=== PATIENT | female | born 1950 | race African-American/Black ===

== ENCOUNTER 2016-09-25 07:34 | Emergency (ER) | payer MEDICARE, MEDICAID ==
[~2016-09-25] VITALS: Ht 165.1 cm; Wt 82.0 kg
[~2016-09-25 07:34] MED LIST: ALPHAGAN P0.1 % OP; AMLODIPINE5 MG PO; ARICEPT PO; ASPIRIN325 MG PO; BRIMONIDINE TAR0.2 % OU; CALCIUM + D600 MG PO; CETIRIZINE HCL5 MG PO; CHILD ASA81 MG OR; CIPROFLOXACN500 MG PO; EQ ASPIRIN81 MG PO; FLEXERIL PO; FLEXERIL10 MG PO; FLONASE NASAL50 MCG; FLUOXETINE10 M2 PO; GLIPIZIDE5 MG PO; HYDRALAZINE25 MG PO; LIPITOR40 MG PO; LISINOPRIL5 MG PO; LOPRESSOR50 MG PO; LORTAB 5/3255 MG PO; LORTAB 7.5 PO; METFORMIN500 MG PO; METOPROLOL TART50 MG PO; MULTI VIT PO; NAMENDA1 TAB PO; NAMENDA10 MG PO; NAPROSYN375 MG PO; NAPROSYN500 MG PO; NIFEDICAL XL30 MG PO; NIFEDIPINE30 MG PO; OXYBUTYNIN5 M1 PO; TRAVATAN Z0.004 % OU; TRAVATAN0.004 % OP; WOMENS 50+ PO; ZPAK PO; ZYRTEC10 MG PO; [UNRECOGNIZED DRUG - CODE] PO
[2016-09-25] MEDS ORDERED: METFORMIN500 MG PO (07:57)
[2016-09-25] MEDS ORDERED: GLIPIZIDE5 MG PO (07:57)
[2016-09-25] MEDS ORDERED: NAPROSYN500 MG PO (09:20)
[2016-09-25 09:28] VITALS: BP 186/96
== END 2016-09-25 09:28 | disposition home or self-care (01) ==
LOC: ED 07:34
DX: S20.219A Contusion of unspecified front wall of thorax, initial encounter (principal); W01.198A Fall on same level from slipping, tripping and stumbling with subsequent striking against other object, initial encounter; Y93.01 Activity, walking, marching and hiking; Y92.009 Unspecified place in unspecified non-institutional (private) residence as the place of occurrence of the external cause; R07.9 Chest pain, unspecified; Z86.73 Personal history of transient ischemic attack (TIA), and cerebral infarction without residual deficits

== ENCOUNTER 2017-02-03 09:46 | Emergency (ER) | payer MEDICARE, MEDICAID ==
[~2017-02-03] VITALS: Ht 165.1 cm; Wt 80.0 kg
[2017-02-03 11:26] LABS: HEMATOCRIT 42.6 % (37.0-47.0); HEMOGLOBIN 13.9 g/dl (12.0-16.0); IMMATURE GRANULOCYTES 0.3 % (0.0-1.0); MEAN CELL VOLUME 82.4 fL CALC (80.0-100.0); MEAN CORPUSCULAR HGB 26.9 pG CALC (26.0-32.0); MEAN CORPUSCULAR HGB CONC 32.6 g/L CALC (32.0-36.0); NEUT# 3.68 thou/uL (2.00-7.15); RED BLOOD COUNT 5.17 mill/uL (4.20-5.60); RED CELL DISTRI WIDTH 13.8 % (11.5-15.5)
[2017-02-03 11:28] LABS: ALBUMIN 4.4 g/dL (3.2-5.0); ALKALINE PHOSPHATASE 70 u/l (38-126); ANION GAP 19 (6-22 (CALC)); BUN 29 mg/dL (8-23); BUN/CREATININE RATIO 30 (12-20 (CALC)); CALCIUM 9.6 mg/dL (8.4-10.2); CARBON DIOXIDE 25 mmol/l (22-30); CHLORIDE 100 mmol/l (95-108); GFR 55 ML/MIN (>=60 (CALC)); GFR FOR AFR.AMER. > 60 ML/MIN (>=60 (CALC)); GLUCOSE 136 mg/dL (82-115); POTASSIUM 3.9 mmol/l (3.5-5.1); SGOT/AST 56 u/l (9-36); SGPT/ALT 56 u/l (11-66); SODIUM 140 mmol/l (137-146); TOTAL PROTEIN 8.3 g/dL (6.3-8.2)
[2017-02-03 11:56] LABS: MYOGLOBIN 733 ng/mL (0 - 62)
[2017-02-03] MEDS ORDERED: DEBROX6.5 % OU (13:39)
[2017-02-03] MEDS ORDERED: CIPROFLOXACN750 MG PO (13:39)
[2017-02-03] MEDS ORDERED: TRAMADOL HYDROC50 MG PO (13:39)
[2017-02-03] MEDS ORDERED: CIPRO HC OT (13:39)
[2017-02-03 13:46] VITALS: BP 163/98
[2017-02-03 14:18] LABS: URINE BILIRUBIN - DIPSTICK NEGATIVE (NEGATIVE); URINE BLOOD DIPSTICK SMALL (NEGATIVE); URINE CLARITY CLEAR; URINE COLOR YELLOW; URINE GLUCOSE - DIPSTICK NEGATIVE (NEGATIVE); URINE KETONE NEGATIVE (NEGATIVE); URINE LEUK ESTERASE NEGATIVE (NEGATIVE); URINE NITRITE - DIPSTICK NEGATIVE (Negative); URINE PH 5.5 (4.5-8.0); URINE PROTEIN - DIPSTICK NEGATIVE (NEG-TRACE); URINE SPECIFIC GRAVITY 1.025; URINE UROBILINOGEN - DIPSTICK 0.2 E.U./dL (0.2)
[2017-02-03 14:23] LABS: URINE RBC 0-2 RBC/hpf (0-5)
== END 2017-02-03 14:00 | disposition home or self-care (01) ==
LOC: ED 09:46
PROVIDERS: Emergency Medicine
DX: H60.91 Unspecified otitis externa, right ear (principal); R00.0 Tachycardia, unspecified; I10 Essential (primary) hypertension; I69.959 Hemiplegia and hemiparesis following unspecified cerebrovascular disease affecting unspecified side; E11.9 Type 2 diabetes mellitus without complications; H40.9 Unspecified glaucoma

== ENCOUNTER 2017-08-01 15:19 | Emergency (ER) | payer MEDICARE, MEDICAID ==
[~2017-08-01] VITALS: Ht 165.1 cm; Wt 77.2 kg
[~2017-08-01 15:19] MED LIST changes: +CIPRO HC OT; +CIPROFLOXACN750 MG PO; +DEBROX6.5 % OU; +TRAMADOL HYDROC50 MG PO
[2017-08-01] MEDS ORDERED: ULTRAM50 M1 PO (16:50)
[2017-08-01 17:27] VITALS: BP 148/89
== END 2017-08-01 17:27 | disposition home or self-care (01) ==
LOC: ED 15:19
DX: S73.102A Unspecified sprain of left hip, initial encounter (principal); I10 Essential (primary) hypertension; E11.9 Type 2 diabetes mellitus without complications; H40.9 Unspecified glaucoma; W17.89XA Other fall from one level to another, initial encounter; Y92.008 Other place in unspecified non-institutional (private) residence as the place of occurrence of the external cause; Z86.73 Personal history of transient ischemic attack (TIA), and cerebral infarction without residual deficits

== ENCOUNTER 2017-09-27 12:21 | Emergency (ER) | payer MEDICARE ==
[~2017-09-27] VITALS: Ht 165.1 cm; Wt 80.0 kg
[~2017-09-27 12:21] MED LIST changes: +ULTRAM50 M1 PO
[2017-09-27 13:38] VITALS: BP 177/94
== END 2017-09-27 13:38 | disposition home or self-care (01) ==
LOC: ED 12:21
DX: S00.03XA Contusion of scalp, initial encounter (principal); E11.9 Type 2 diabetes mellitus without complications; I10 Essential (primary) hypertension; H40.9 Unspecified glaucoma; W01.0XXA Fall on same level from slipping, tripping and stumbling without subsequent striking against object, initial encounter; Y93.01 Activity, walking, marching and hiking; Y92.410 Unspecified street and highway as the place of occurrence of the external cause; Z86.73 Personal history of transient ischemic attack (TIA), and cerebral infarction without residual deficits

== ENCOUNTER 2019-02-23 12:12 | Emergency (ER) | payer MEDICARE ==
[~2019-02-23] VITALS: Ht 165.1 cm; Wt 78.0 kg
[2019-02-23] MEDS ORDERED: VOLTAREN1%GEL TOP ×2 (12:34→12:48)
[2019-02-23 14:27] VITALS: BP 165/77
== END 2019-02-23 14:36 | disposition home or self-care (01) ==
LOC: ED 12:12
DX: S86.911A Strain of unspecified muscle(s) and tendon(s) at lower leg level, right leg, initial encounter (principal); E11.9 Type 2 diabetes mellitus without complications; I10 Essential (primary) hypertension; X58.XXXA Exposure to other specified factors, initial encounter; Z86.73 Personal history of transient ischemic attack (TIA), and cerebral infarction without residual deficits; Z79.84 Long term (current) use of oral hypoglycemic drugs

== ENCOUNTER 2020-07-14 06:28 | Day surgery (SDC) | payer MEDICARE ==
[~2020-07-14 06:28] MED LIST changes: +BAYER ASPIRIN325 M1 PO; +CALCIUM 600/VI600 MG PO; +DITROPAN5 MG/TA1 PO; +HYDROCHLOROT25 MG PO; +METFORMIN500 M2 PO; +METOPROL TAR25 MG PO; +NORVASC2.5 M1 PO; +OMEPRAZOLE20 MG PO; +TRAVOPROST0.0041 OU; +VOLTAREN1%GEL TOP
[2020-07-14 09:37] VITALS: BP 174/93
--- NOTE | 2020-07-14 13:44 | NUR ---
PER PHYSICIAN, PATIENT ADVISED OF NORMAL COLONOSCOPY RESULTS, RECOMMENDATIONS NO NEED FOR FURTHER COLONOSCOPIC SCREENING UNLESS PATIENT'S CLINICAL SITUATION WARRANTS. PATIENT AGREED TO INFORMATION PROVIDED. REPORT AND NOTE FORWARDED TO PRIMARY CARE PHYSICIAN FOR CONTINUITY OF CARE.
== END 2020-07-14 09:30 | disposition home or self-care (01) ==
LOC: ENDO 06:28
PROVIDERS: ATTEND Surgery
PROC: 0DJD8ZZ Inspection of Lower Intestinal Tract, Via Natural or Artificial Opening Endoscopic (ICD-10-PCS; principal; 2020-07-14)
DX: Z12.11 Encounter for screening for malignant neoplasm of colon (principal); I10 Essential (primary) hypertension; E11.9 Type 2 diabetes mellitus without complications; Z79.84 Long term (current) use of oral hypoglycemic drugs; Z20.822 Contact with and (suspected) exposure to COVID-19

== ENCOUNTER 2021-12-29 21:15 | Emergency (ER) | payer MEDICARE ==
[~2021-12-29] VITALS: Ht 165.1 cm; Wt 70.0 kg
[2021-12-29 23:19] VITALS: BP 178/97
== END 2021-12-29 23:31 | disposition home or self-care (01) ==
LOC: ED 21:15
PROC: 0HQ0XZZ Repair Scalp Skin, External Approach (ICD-10-PCS; principal; 2021-12-29)
DX: S01.01XA Laceration without foreign body of scalp, initial encounter (principal); I10 Essential (primary) hypertension; E11.9 Type 2 diabetes mellitus without complications; W18.39XA Other fall on same level, initial encounter; Y93.89 Activity, other specified; Z79.84 Long term (current) use of oral hypoglycemic drugs

== ENCOUNTER 2022-01-03 10:12 | Emergency (ER) | payer MEDICARE ==
[~2022-01-03] VITALS: Ht 165.1 cm; Wt 58.0 kg
[2022-01-03 10:17] VITALS: BP 186/112
[2022-01-03 10:31] VITALS: BP 156/69
[2022-01-03 11:01] VITALS: BP 163/89
[2022-01-03 11:31] VITALS: BP 185/94
== END 2022-01-03 11:54 | disposition home or self-care (01) ==
LOC: ED 10:12
DX: S01.01XD Laceration without foreign body of scalp, subsequent encounter (principal); X58.XXXD Exposure to other specified factors, subsequent encounter; I10 Essential (primary) hypertension; E11.9 Type 2 diabetes mellitus without complications; Z79.84 Long term (current) use of oral hypoglycemic drugs

== ENCOUNTER 2022-01-13 15:22 | Emergency (ER) | payer MEDICARE, MEDICAID ==
[~2022-01-13] VITALS: Ht 165.1 cm; Wt 64.5 kg
[2022-01-13 15:27] VITALS: BP 129/81
[2022-01-13 15:30] VITALS: BP 115/66
[2022-01-13 16:31] VITALS: BP 138/80
[2022-01-13 17:00] VITALS: BP 144/79
== END 2022-01-13 17:33 | disposition home or self-care (01) ==
LOC: ED 15:22
DX: S00.81XA Abrasion of other part of head, initial encounter (principal); S21.112A Laceration without foreign body of left front wall of thorax without penetration into thoracic cavity, initial encounter; I10 Essential (primary) hypertension; E11.9 Type 2 diabetes mellitus without complications; W01.0XXA Fall on same level from slipping, tripping and stumbling without subsequent striking against object, initial encounter; Y92.481 Parking lot as the place of occurrence of the external cause; Z79.84 Long term (current) use of oral hypoglycemic drugs

== ENCOUNTER 2022-03-18 10:36 | Emergency (ER) | payer MEDICARE ==
[2022-03-18] VITALS (9 sets, daily range): BP systolic 160–188; BP diastolic 82–101
[~2022-03-18] VITALS: Ht 165.1 cm; Wt 68.2 kg
== END 2022-03-18 13:22 | disposition home or self-care (01) ==
LOC: ED 10:36
DX: R60.0 Localized edema (principal); S81.801A Unspecified open wound, right lower leg, initial encounter; I10 Essential (primary) hypertension; E11.9 Type 2 diabetes mellitus without complications; X58.XXXA Exposure to other specified factors, initial encounter; Z79.84 Long term (current) use of oral hypoglycemic drugs

== ENCOUNTER 2022-03-19 11:50 | Emergency (ER) | payer MEDICARE ==
[~2022-03-19] VITALS: Ht 165.1 cm; Wt 65.0 kg
[2022-03-19 12:06] VITALS: BP 181/91
[2022-03-19 12:23] VITALS: BP 183/82
== END 2022-03-19 13:20 | disposition home or self-care (01) ==
LOC: ED 11:50
PROC: 0HQ0XZZ Repair Scalp Skin, External Approach (ICD-10-PCS; principal; 2022-03-19)
DX: S01.01XA Laceration without foreign body of scalp, initial encounter (principal); I10 Essential (primary) hypertension; E11.9 Type 2 diabetes mellitus without complications; K21.9 Gastro-esophageal reflux disease without esophagitis; H40.9 Unspecified glaucoma; W01.0XXA Fall on same level from slipping, tripping and stumbling without subsequent striking against object, initial encounter; Y92.009 Unspecified place in unspecified non-institutional (private) residence as the place of occurrence of the external cause

== ENCOUNTER 2023-02-16 09:58 | Inpatient (IN) | payer MEDICARE ==
[2023-02-16] VITALS (11 sets, daily range): BP systolic 126–165; BP diastolic 75–90
[~2023-02-16] VITALS: Ht 165.1 cm; Wt 71.0 kg
[~2023-02-16 09:58] MED LIST changes: -DITROPAN5 MG/TA1 PO; -HYDROCHLOROT25 MG PO; +HYDROCHLOROTHIA50 MG PO; -METOPROL TAR25 MG PO; +OXYBUTYNIN CHLOR5 M2 PO
[2023-02-16 10:46] LABS: BASO% 0.1 % (0-3); EOS% 0.4 % (0-8); HEMATOCRIT 37.8 % (37.0-47.0); HEMOGLOBIN 12.2 g/dl (12.0-16.0); IMMATURE GRANULOCYTES 0.5 % (0.0-5.0); MEAN CELL VOLUME 83.1 fL CALC (80.0-100.0); MEAN CORPUSCULAR HGB 26.8 pG CALC (26.0-32.0); MEAN CORPUSCULAR HGB CONC 32.3 g/dL CAL (32.0-36.0); MONO% 9.2 % (2-13); NEUT# 12.92 thou/uL (2.00-7.15); NEUT% 76.8 % (42-76); RED BLOOD COUNT 4.55 mill/uL (4.20-5.60); RED CELL DISTRI WIDTH 12.5 % (11.5-15.5)
[2023-02-16 11:14] LABS: ALBUMIN 3.6 g/dL (3.2-5.0); CREATININE 1.2 mg/dL (0.5-1.0); POTASSIUM 3.6 mmol/l (3.5-5.1); TOTAL PROTEIN 7.8 g/dL (6.3-8.2)
[2023-02-16 11:21] LABS: ACT PARTIAL THROMBO TIME 25.1 SECONDS (20.0-32.5); BILIRUBIN, TOTAL 0.8 mg/dL (0.02-1.3); INTERNATIONAL NORMALIZED RATIO 1.2 RATIO (0.7-1.3); PROTHROMBIN TIME 11.4 SECONDS (9.0-12.5)
[2023-02-16 11:23] LABS: D-DIMER 19.12 mg/L (0.19-0.60)
[2023-02-16 14:21] LABS: URINE BILIRUBIN - DIPSTICK Negative (NEGATIVE); URINE BLOOD DIPSTICK Moderate (NEGATIVE); URINE GLUCOSE - DIPSTICK Negative (NEGATIVE); URINE KETONE Negative (NEGATIVE); URINE NITRITE - DIPSTICK Negative (Negative); URINE PROTEIN - DIPSTICK Negative (NEG-TRACE); URINE UROBILINOGEN - DIPSTICK 0.2 E.U./dL (0.2)
[2023-02-16 14:22] LABS: URINE COLOR Yellow; URINE LEUK ESTERASE Moderate (NEGATIVE)
[2023-02-16 14:26] LABS: URINE SQUAMOUS EPITHELIAL CELL FEW EPI/hpf (0-FEW); URINE WBC 50-100 WBC/hpf (0-5)
[2023-02-16 14:27] LABS: URINE BACTERIA MANY hpf
[2023-02-16 15:36] LABS: INTERNATIONAL NORMALIZED RATIO 1.3 RATIO (0.7-1.3); PROTHROMBIN TIME 12.6 SECONDS (9.0-12.5)
[2023-02-16 15:40] LABS: ACT PARTIAL THROMBO TIME 121.4 SECONDS (20.0-32.5)
[2023-02-16 16:04] LABS: BASO% 0.2 % (0-3); EOS% 0.4 % (0-8); HEMOGLOBIN 13.5 g/dl (12.0-16.0); IMMATURE GRANULOCYTES 0.9 % (0.0-5.0); LYMPH% 18.3 % (15-41); MEAN CELL VOLUME 83.2 fL CALC (80.0-100.0); MEAN CORPUSCULAR HGB 26.7 pG CALC (26.0-32.0); MEAN CORPUSCULAR HGB CONC 32.1 g/dL CAL (32.0-36.0); MONO% 7.6 % (2-13); NEUT# 11.82 thou/uL (2.00-7.15); NEUT% 72.6 % (42-76); RED BLOOD COUNT 5.05 mill/uL (4.20-5.60); RED CELL DISTRI WIDTH 12.4 % (11.5-15.5)
[2023-02-16] MEDS ORDERED: LASIX 40 MG TAB40 MG PO (17:59)
[2023-02-16] MEDS ORDERED: POT CHLORIDE10 ME5 PO (17:59)
[2023-02-16] MEDS ORDERED: CLONIDINE0.2 MG PO (18:00)
[2023-02-16] MEDS ORDERED: MIRTAZAPINE15 MG PO (18:01)
[2023-02-16] MEDS ORDERED: JANUVIA100 MG PO (18:02)
[2023-02-17] VITALS (39 sets, daily range): BP systolic 111–168; BP diastolic 69–115
[2023-02-17 05:28] LABS: BASO% 0.2 % (0-3); EOS% 1.4 % (0-8); HEMOGLOBIN 12.7 g/dl (12.0-16.0); IMMATURE GRANULOCYTES 0.5 % (0.0-5.0); LYMPH% 25.1 % (15-41); MEAN CELL VOLUME 83.3 fL CALC (80.0-100.0); MEAN CORPUSCULAR HGB 27.1 pG CALC (26.0-32.0); MEAN CORPUSCULAR HGB CONC 32.6 g/dL CAL (32.0-36.0); MONO% 8.7 % (2-13); NEUT# 7.98 thou/uL (2.00-7.15); NEUT% 64.1 % (42-76); RED BLOOD COUNT 4.68 mill/uL (4.20-5.60); RED CELL DISTRI WIDTH 12.5 % (11.5-15.5)
[2023-02-17 05:41] LABS: ALBUMIN 3.6 g/dL (3.2-5.0); ALKALINE PHOSPHATASE 80 u/l (38-126); ANION GAP 15 (6-22 (CALC)); BILIRUBIN, TOTAL 0.7 mg/dL (0.02-1.3); BUN 25 mg/dL (8-23); BUN/CREATININE RATIO 30 (12-20 (CALC)); CARBON DIOXIDE 26 mmol/l (22-30); CHLORIDE 99 mmol/l (95-108); CREATININE 0.8 mg/dL (0.5-1.0); GFR FOR AFR.AMER. > 60 ML/MIN (>=60 (CALC)); GFR OTHER RACES > 60 ML/MIN (>=60 (CALC)); MAGNESIUM 1.9 mg/dL (1.6-2.3); POTASSIUM 2.9 mmol/l (3.5-5.1); SGOT/AST 28 u/l (9-36); SODIUM 136 mmol/l (137-146)
[2023-02-18] VITALS (27 sets, daily range): BP systolic 127–180; BP diastolic 66–108
[2023-02-18 06:16] LABS: BASO% 0.3 % (0-3); EOS% 1.8 % (0-8); HEMATOCRIT 39.1 % (37.0-47.0); HEMOGLOBIN 12.7 g/dl (12.0-16.0); IMMATURE GRANULOCYTES 0.3 % (0.0-5.0); LYMPH% 26.2 % (15-41); MEAN CELL VOLUME 83.9 fL CALC (80.0-100.0); MEAN CORPUSCULAR HGB 27.3 pG CALC (26.0-32.0); MEAN CORPUSCULAR HGB CONC 32.5 g/dL CAL (32.0-36.0); MONO% 9.1 % (2-13); NEUT# 8.06 thou/uL (2.00-7.15); NEUT% 62.3 % (42-76); RED BLOOD COUNT 4.66 mill/uL (4.20-5.60); RED CELL DISTRI WIDTH 12.6 % (11.5-15.5)
[2023-02-18 06:24] LABS: CHOLESTEROL HDL RATIO 3.9 (<4.4 (CALC))
[2023-02-18 06:25] LABS: ALBUMIN 3.5 g/dL (3.2-5.0); ALKALINE PHOSPHATASE 67 u/l (38-126); ANION GAP 17 (6-22 (CALC)); BILIRUBIN, TOTAL 0.8 mg/dL (0.02-1.3); BUN 25 mg/dL (8-23); BUN/CREATININE RATIO 30 (12-20 (CALC)); CARBON DIOXIDE 22 mmol/l (22-30); CHLORIDE 101 mmol/l (95-108); CREATININE 0.8 mg/dL (0.5-1.0); GFR FOR AFR.AMER. > 60 ML/MIN (>=60 (CALC)); GFR OTHER RACES > 60 ML/MIN (>=60 (CALC)); MAGNESIUM 1.9 mg/dL (1.6-2.3); SGOT/AST 32 u/l (9-36); SODIUM 136 mmol/l (137-146); TOTAL PROTEIN 7.3 g/dL (6.3-8.2)
[2023-02-19] VITALS (25 sets, daily range): BP systolic 119–182; BP diastolic 71–108
[2023-02-19 05:46] LABS: HEMATOCRIT 35.7 % (37.0-47.0); HEMOGLOBIN 11.6 g/dl (12.0-16.0); MEAN CORPUSCULAR HGB 27.6 pG CALC (26.0-32.0); MEAN CORPUSCULAR HGB CONC 32.5 g/dL CAL (32.0-36.0); RED BLOOD COUNT 4.2 mill/uL (4.20-5.60); RED CELL DISTRI WIDTH 12.7 % (11.5-15.5)
[2023-02-19 06:02] LABS: ALBUMIN 3.5 g/dL (3.2-5.0); ALKALINE PHOSPHATASE 67 u/l (38-126); ANION GAP 14 (6-22 (CALC)); BILIRUBIN, TOTAL 0.6 mg/dL (0.02-1.3); BUN 18 mg/dL (8-23); BUN/CREATININE RATIO 22 (12-20 (CALC)); CARBON DIOXIDE 22 mmol/l (22-30); CHLORIDE 101 mmol/l (95-108); CREATININE 0.8 mg/dL (0.5-1.0); GFR FOR AFR.AMER. > 60 ML/MIN (>=60 (CALC)); GFR OTHER RACES > 60 ML/MIN (>=60 (CALC)); POTASSIUM 3.7 mmol/l (3.5-5.1); SGOT/AST 34 u/l (9-36); SODIUM 134 mmol/l (137-146); TOTAL PROTEIN 7.4 g/dL (6.3-8.2)
[2023-02-20] VITALS (49 sets, daily range): BP systolic 119–213; BP diastolic 72–117
[2023-02-20 06:00] LABS: HEMATOCRIT 38.3 % (37.0-47.0); HEMOGLOBIN 12.4 g/dl (12.0-16.0); MEAN CELL VOLUME 85.3 fL CALC (80.0-100.0); MEAN CORPUSCULAR HGB 27.6 pG CALC (26.0-32.0); MEAN CORPUSCULAR HGB CONC 32.4 g/dL CAL (32.0-36.0); RED BLOOD COUNT 4.49 mill/uL (4.20-5.60); RED CELL DISTRI WIDTH 12.5 % (11.5-15.5)
[2023-02-20 06:05] LABS: ALBUMIN 3.1 g/dL (3.2-5.0); ALKALINE PHOSPHATASE 67 u/l (38-126); ANION GAP 13 (6-22 (CALC)); BUN 10 mg/dL (8-23); BUN/CREATININE RATIO 16 (12-20 (CALC)); CARBON DIOXIDE 23 mmol/l (22-30); CHLORIDE 104 mmol/l (95-108); CREATININE 0.6 mg/dL (0.5-1.0); GFR FOR AFR.AMER. > 60 ML/MIN (>=60 (CALC)); GFR OTHER RACES > 60 ML/MIN (>=60 (CALC)); MAGNESIUM 1.6 mg/dL (1.6-2.3); POTASSIUM 3.8 mmol/l (3.5-5.1); SGOT/AST 29 u/l (9-36); SODIUM 136 mmol/l (137-146); TOTAL PROTEIN 6.8 g/dL (6.3-8.2)
[2023-02-20 06:08] LABS: BILIRUBIN, TOTAL 0.3 mg/dL (0.02-1.3)
[2023-02-20] MEDS ORDERED: CORDARONE/200 MG/TAB PO (17:47)
[2023-02-20] MEDS ORDERED: ELIQUIS5 MG PO (17:47)
== END 2023-02-20 18:30 | disposition home health service (06) | DRG 176 ==
LOC: ED 09:58 → ED-I 13:10 → ED 13:29 → ICU 13:30 → MS2 13:30 → ICU 02-17 08:40
PROVIDERS: Emergency Medicine; Nurse Practitioner Family; Student in an Organized Health Care Education/Training Program; ADMIT Student in an Organized Health Care Education/Training Program; ATTEND Student in an Organized Health Care Education/Training Program
DX: I26.99 Other pulmonary embolism without acute cor pulmonale (principal); N39.0 Urinary tract infection, site not specified; I82.411 Acute embolism and thrombosis of right femoral vein; I10 Essential (primary) hypertension; E11.65 Type 2 diabetes mellitus with hyperglycemia; I48.91 Unspecified atrial fibrillation; E87.6 Hypokalemia; F03.90 Unspecified dementia, unspecified severity, without behavioral disturbance, psychotic disturbance, mood disturbance, and anxiety; B96.89 Other specified bacterial agents as the cause of diseases classified elsewhere; Z86.73 Personal history of transient ischemic attack (TIA), and cerebral infarction without residual deficits; Z91.81 History of falling; Z79.84 Long term (current) use of oral hypoglycemic drugs; Z20.822 Contact with and (suspected) exposure to COVID-19
CPT/HCPCS: J1644; Q9967

== ENCOUNTER 2023-06-15 10:16 | Inpatient (IN) | payer MEDICARE ==
[~2023-06-15] VITALS: Ht 165.1 cm; Wt 76.2 kg
[2023-06-15] VITALS (16 sets, daily range): BP systolic 135–200; BP diastolic 74–120
[~2023-06-15 10:16] MED LIST changes: +AMLODIPINE BESY10 MG PO; +CLONIDINE0.2 MG PO; +CORDARONE/200 MG/TAB PO; +ELIQUIS5 MG PO; +JANUVIA100 MG PO; +KLOR-CON M1010 MEQ PO; +LASIX 40 MG TAB40 MG PO; +LISINOPRIL20 M1 PO; +MIRTAZAPINE15 MG PO; +POT CHLORIDE10 ME5 PO
[2023-06-15 11:02] LABS: INTERNATIONAL NORMALIZED RATIO 1.2 RATIO (0.7-1.3); PROTHROMBIN TIME 11.4 SECONDS (9.0-12.5)
[2023-06-15 11:05] LABS: ALBUMIN 4.1 g/dL (3.2-5.0); CHOLESTEROL HDL RATIO 5.3 (<4.4 (CALC)); CREATININE 1.6 mg/dL (0.5-1.0); POTASSIUM 3.7 mmol/l (3.5-5.1); TOTAL PROTEIN 8.3 g/dL (6.3-8.2)
[2023-06-15 11:07] LABS: BILIRUBIN, TOTAL 1.3 mg/dL (0.02-1.3)
[2023-06-15 11:09] LABS: BASO% 0.1 % (0-3); HEMATOCRIT 40.6 % (37.0-47.0); HEMOGLOBIN 13.3 g/dl (12.0-16.0); IMMATURE GRANULOCYTES 0.4 % (0.0-5.0); LYMPH% 9.4 % (15-41); MEAN CELL VOLUME 81.4 fL CALC (80.0-100.0); MEAN CORPUSCULAR HGB 26.7 pG CALC (26.0-32.0); MEAN CORPUSCULAR HGB CONC 32.8 g/dL CAL (32.0-36.0); NEUT# 17.34 thou/uL (2.00-7.15); NEUT% 82.1 % (42-76); RED BLOOD COUNT 4.99 mill/uL (4.20-5.60); RED CELL DISTRI WIDTH 14.1 % (11.5-15.5)
[2023-06-15 12:24] LABS: URINE BILIRUBIN - DIPSTICK Negative (NEGATIVE); URINE BLOOD DIPSTICK Small (NEGATIVE); URINE GLUCOSE - DIPSTICK Negative (NEGATIVE); URINE KETONE Negative (NEGATIVE); URINE NITRITE - DIPSTICK Negative (Negative); URINE PH 6.5 (4.5-8.0); URINE PROTEIN - DIPSTICK Trace mg/dL (NEG-TRACE)
[2023-06-15 12:25] LABS: URINE COLOR Yellow; URINE LEUK ESTERASE Large (NEGATIVE)
[2023-06-15 12:32] LABS: URINE RBC 0-2 RBC/hpf (0-5)
[2023-06-15 12:33] LABS: URINE SQUAMOUS EPITHELIAL CELL FEW EPI/hpf (0-FEW); URINE WBC 50-100 WBC/hpf (0-5)
[2023-06-15 12:34] LABS: URINE BACTERIA MANY hpf
[2023-06-15] MEDS ORDERED: OMEPRAZOLE DR40 MG PO (14:15)
[2023-06-15] MEDS ORDERED: CLONIDINE0.2 MG PO (14:15)
[2023-06-15] MEDS ORDERED: METOPROLOL TART50 MG PO (14:16)
[2023-06-15] MEDS ORDERED: LASIX40 MG PO (14:41)
[2023-06-15] MEDS ORDERED: CORDARONE/200 MG/TAB PO (14:42)
[2023-06-16 06:46] LABS: IMMATURE GRANULOCYTES 0.4 % (0.0-5.0); LYMPH% 5.9 % (15-41); MEAN CELL VOLUME 82.5 fL CALC (80.0-100.0); MEAN CORPUSCULAR HGB 26.4 pG CALC (26.0-32.0); MONO% 8.2 % (2-13); NEUT# 17.16 thou/uL (2.00-7.15); NEUT% 85.5 % (42-76); RED BLOOD COUNT 4.24 mill/uL (4.20-5.60)
[2023-06-16 07:00] LABS: HEMOGLOBIN 11.2 g/dl (12.0-16.0)
[2023-06-16 07:17] VITALS: BP 137/70
[2023-06-16 07:41] LABS: CHOLESTEROL HDL RATIO 4.7 (<4.4 (CALC)); CREATININE 1.3 mg/dL (0.5-1.0); MAGNESIUM 1.8 mg/dL (1.6-2.3)
[2023-06-16 07:47] LABS: BILIRUBIN, TOTAL 0.5 mg/dL (0.02-1.3); TOTAL PROTEIN 6.2 g/dL (6.3-8.2)
[2023-06-16 07:48] LABS: POTASSIUM 2.5 mmol/l (3.5-5.1)
[2023-06-16 11:05] VITALS: BP 153/73
[2023-06-16 14:30] VITALS: BP 171/83
[2023-06-16 20:07] VITALS: BP 174/88
[2023-06-16 20:08] VITALS: BP 173/79
[2023-06-17] VITALS (11 sets, daily range): BP systolic 156–189; BP diastolic 87–120
[2023-06-17 04:54] LABS: BASO% 0.2 % (0-3); EOS% 0.1 % (0-8); HEMATOCRIT 37.7 % (37.0-47.0); HEMOGLOBIN 12.2 g/dl (12.0-16.0); IMMATURE GRANULOCYTES 0.8 % (0.0-5.0); LYMPH% 8.9 % (15-41); MEAN CORPUSCULAR HGB 27.2 pG CALC (26.0-32.0); MEAN CORPUSCULAR HGB CONC 32.4 g/dL CAL (32.0-36.0); MONO% 9.4 % (2-13); NEUT# 11.74 thou/uL (2.00-7.15); NEUT% 80.6 % (42-76); RED BLOOD COUNT 4.49 mill/uL (4.20-5.60)
[2023-06-17 05:42] LABS: ALBUMIN 3.2 g/dL (3.2-5.0); CREATININE 1.2 mg/dL (0.5-1.0); MAGNESIUM 1.9 mg/dL (1.6-2.3); POTASSIUM 2.5 mmol/l (3.5-5.1); TOTAL PROTEIN 6.8 g/dL (6.3-8.2)
[2023-06-17 05:50] LABS: BILIRUBIN, TOTAL 0.8 mg/dL (0.02-1.3)
[2023-06-18] VITALS (61 sets, daily range): BP systolic 100–194; BP diastolic 53–146
[2023-06-18 07:34] LABS: BASO% 0.2 % (0-3); EOS% 0.7 % (0-8); HEMATOCRIT 35.5 % (37.0-47.0); HEMOGLOBIN 11.5 g/dl (12.0-16.0); MEAN CELL VOLUME 82.2 fL CALC (80.0-100.0); MEAN CORPUSCULAR HGB 26.6 pG CALC (26.0-32.0); MEAN CORPUSCULAR HGB CONC 32.4 g/dL CAL (32.0-36.0); MONO% 10.9 % (2-13); NEUT# 9.26 thou/uL (2.00-7.15); NEUT% 77.2 % (42-76); RED BLOOD COUNT 4.32 mill/uL (4.20-5.60); RED CELL DISTRI WIDTH 14.1 % (11.5-15.5)
[2023-06-18 07:43] LABS: BILIRUBIN, TOTAL 0.5 mg/dL (0.02-1.3); CREATININE 1.3 mg/dL (0.5-1.0)
[2023-06-18 08:54] LABS: ALBUMIN 2.8 g/dL (3.2-5.0); POTASSIUM 3.6 mmol/l (3.5-5.1); TOTAL PROTEIN 6.2 g/dL (6.3-8.2)
[2023-06-18 09:02] LABS: MAGNESIUM 2.5 mg/dL (1.6-2.3)
[2023-06-18 18:37] LABS: BASO% 0.1 % (0-3); EOS% 1.2 % (0-8); HEMATOCRIT 38.7 % (37.0-47.0); HEMOGLOBIN 12.3 g/dl (12.0-16.0); MEAN CELL VOLUME 81.1 fL CALC (80.0-100.0); MEAN CORPUSCULAR HGB 25.8 pG CALC (26.0-32.0); MEAN CORPUSCULAR HGB CONC 31.8 g/dL CAL (32.0-36.0); MONO% 8.8 % (2-13); NEUT# 9.91 thou/uL (2.00-7.15); NEUT% 73.9 % (42-76); RED BLOOD COUNT 4.77 mill/uL (4.20-5.60); RED CELL DISTRI WIDTH 14.1 % (11.5-15.5)
[2023-06-18 19:03] LABS: ALBUMIN 3.1 g/dL (3.2-5.0); BILIRUBIN, TOTAL 0.5 mg/dL (0.02-1.3); CREATININE 1.3 mg/dL (0.5-1.0); POTASSIUM 3.2 mmol/l (3.5-5.1); TOTAL PROTEIN 6.6 g/dL (6.3-8.2)
[2023-06-19] VITALS (172 sets, daily range): BP systolic 109–203; BP diastolic 61–145
[2023-06-19 07:17] LABS: BASO% 0.1 % (0-3); EOS% 1.6 % (0-8); HEMATOCRIT 36.5 % (37.0-47.0); HEMOGLOBIN 11.7 g/dl (12.0-16.0); IMMATURE GRANULOCYTES 1.1 % (0.0-5.0); LYMPH% 17.5 % (15-41); MEAN CELL VOLUME 81.1 fL CALC (80.0-100.0); MEAN CORPUSCULAR HGB CONC 32.1 g/dL CAL (32.0-36.0); MONO% 9.3 % (2-13); NEUT# 6.2 thou/uL (2.00-7.15); NEUT% 70.4 % (42-76); RED BLOOD COUNT 4.5 mill/uL (4.20-5.60); RED CELL DISTRI WIDTH 14.2 % (11.5-15.5)
[2023-06-19 07:36] LABS: ALBUMIN 2.7 g/dL (3.2-5.0); ALKALINE PHOSPHATASE 53 u/l (38-126); ANION GAP 13 (6-22 (CALC)); BILIRUBIN, TOTAL 0.6 mg/dL (0.02-1.3); BUN 39 mg/dL (8-23); BUN/CREATININE RATIO 38 (12-20 (CALC)); CARBON DIOXIDE 21 mmol/l (22-30); CHLORIDE 107 mmol/l (95-108); GFR FOR AFR.AMER. > 60 ML/MIN (>=60 (CALC)); GFR OTHER RACES 54 ML/MIN (>=60 (CALC)); POTASSIUM 3.4 mmol/l (3.5-5.1); SGOT/AST 33 u/l (9-36); SODIUM 138 mmol/l (137-146)
[2023-06-20] VITALS (63 sets, daily range): BP systolic 104–194; BP diastolic 67–115
[2023-06-20 06:28] LABS: BASO% 0.3 % (0-3); EOS% 1.3 % (0-8); HEMOGLOBIN 11.8 g/dl (12.0-16.0); IMMATURE GRANULOCYTES 1.3 % (0.0-5.0); LYMPH% 22.3 % (15-41); MEAN CELL VOLUME 84.4 fL CALC (80.0-100.0); MEAN CORPUSCULAR HGB 26.2 pG CALC (26.0-32.0); MEAN CORPUSCULAR HGB CONC 31.1 g/dL CAL (32.0-36.0); MONO% 12.7 % (2-13); NEUT# 6.67 thou/uL (2.00-7.15); NEUT% 62.1 % (42-76); RED BLOOD COUNT 4.5 mill/uL (4.20-5.60); RED CELL DISTRI WIDTH 14.4 % (11.5-15.5)
[2023-06-20 07:54] LABS: BUN 26 mg/dL (8-23); BUN/CREATININE RATIO 30 (12-20 (CALC)); CHLORIDE 109 mmol/l (95-108); CREATININE 0.9 mg/dL (0.5-1.0); GFR FOR AFR.AMER. > 60 ML/MIN (>=60 (CALC)); GFR OTHER RACES > 60 ML/MIN (>=60 (CALC)); POTASSIUM 3.4 mmol/l (3.5-5.1); SODIUM 137 mmol/l (137-146)
[2023-06-20 07:55] LABS: ANION GAP 16 (6-22 (CALC)); CARBON DIOXIDE 15 mmol/l (22-30)
[2023-06-20] MEDS ORDERED: LEVOFLOXACIN500MG PO (14:48)
[2023-06-20] MEDS ORDERED: AMLODIPINE BESY10 MG PO (15:05)
== END 2023-06-20 17:10 | disposition home or self-care (01) | DRG 871 ==
LOC: ED 10:16 → ED-I 12:10 → ED 12:42 → MS2 12:43 → ICU 06-16 10:51
PROVIDERS: Emergency Medicine; Nurse Practitioner Family; Student in an Organized Health Care Education/Training Program; ADMIT Student in an Organized Health Care Education/Training Program; ATTEND Student in an Organized Health Care Education/Training Program
DX: A41.51 Sepsis due to Escherichia coli [E. coli] (principal); G93.41 Metabolic encephalopathy; N30.01 Acute cystitis with hematuria; N17.9 Acute kidney failure, unspecified; I48.11 Longstanding persistent atrial fibrillation; R65.20 Severe sepsis without septic shock; E86.9 Volume depletion, unspecified; E86.0 Dehydration; E87.6 Hypokalemia; E11.65 Type 2 diabetes mellitus with hyperglycemia; R13.10 Dysphagia, unspecified; E11.649 Type 2 diabetes mellitus with hypoglycemia without coma; I10 Essential (primary) hypertension; F03.90 Unspecified dementia, unspecified severity, without behavioral disturbance, psychotic disturbance, mood disturbance, and anxiety; I69.392 Facial weakness following cerebral infarction; N32.81 Overactive bladder; Z79.01 Long term (current) use of anticoagulants
CPT/HCPCS: J0692; J1650; J3475; Q9967; S0164

== ENCOUNTER 2024-07-05 11:45 | Observation (INO) | payer MEDICARE ==
[2024-07-05] VITALS (23 sets, daily range): BP systolic 146–206; BP diastolic 73–102
[~2024-07-05] VITALS: Ht 165.1 cm; Wt 68.0 kg
[~2024-07-05 11:45] MED LIST changes: +LASIX40 MG PO; +LEVOFLOXACIN500MG PO; +OMEPRAZOLE DR40 MG PO
--- NOTE | 2024-07-05 12:00 | NUR ---
PT TO ER ROOM 3 VIA WHEELCHAIR.
[2024-07-05] MEDS ORDERED: OXYBUTYNIN CHLOR5 M2 PO (13:27)
[2024-07-05] MEDS ORDERED: ACTOS30 MG PO (13:29)
--- NOTE | 2024-07-05 13:40 | NUR ---
PT RESTING, NO NEEDS AT THIS TIME.
[2024-07-05 14:03] LABS: BASO% 0.2 % (0-3); HEMATOCRIT 38.7 % (37.0-47.0); HEMOGLOBIN 11.3 g/dl (12.0-16.0); IMMATURE GRANULOCYTES 0.7 % (0.0-5.0); LYMPH% 20.1 % (15-41); MEAN CORPUSCULAR HGB 28.3 pG CALC (26.0-32.0); MEAN CORPUSCULAR HGB CONC 29.2 g/dL CAL (32.0-36.0); MONO% 8.3 % (2-13); NEUT# 8.79 thou/uL (2.00-7.15); NEUT% 69.7 % (42-76); RED CELL DISTRI WIDTH 15.3 % (11.5-15.5)
[2024-07-05 14:08] LABS: MEAN CELL VOLUME 96.8 fL CALC (80.0-100.0)
[2024-07-05 14:17] LABS: CREATININE 1.1 mg/dL (0.5-1.0)
[2024-07-05 14:18] LABS: ALBUMIN 3.7 g/dL (3.2-5.0); POTASSIUM 4.8 mmol/l (3.5-5.1)
[2024-07-05] MEDS ORDERED: ONDANSETRON HCl 4 MG/2 ML SDV IV ONE ×2 (15:10→15:15)
[2024-07-05] MEDS ORDERED: MORPHINE SULFATE 4 MG/ML VIAL IV ONE ×2 (15:10→15:15)
--- NOTE | 2024-07-05 15:31 | NUR ---
PT AND FAMILY UPDATED ON STATUS.
[2024-07-05] MEDS ORDERED: hydrALAZINE HCL 20 MG/ML VIAL(1 ML) IV ONE (15:45)
--- NOTE | 2024-07-05 16:47 | NUR ---
PT REPORT TO TIFFANIE WARD.
--- NOTE | 2024-07-05 17:40 | NUR ---
REPORT RECIEVED BY DIANNE MORENO IN ED. PT BROUGHT UP IN STRETCHER BY DIANNE MORENO FROM ED. PT ON TELEMETRY. PT ALERT AND ORIENTED TO PERSON AND PLACE.
--- NOTE | 2024-07-05 17:51 | NUR ---
pt transported by stretcher to room 268. transfered care of pt.
--- NOTE | 2024-07-05 17:55 | NUR ---
DR. BARAJAS CALLED AND NOTIFIED OF PT'S MANUAL BLOOD PRESSURE OF 206/96. SEE NEW ORDERS.
[2024-07-05] MEDS ORDERED: LABETALOL HCL 20 MG/ 4 ML CARTRG IV SCH (18:40)
--- NOTE | 2024-07-05 20:00 | NUR ---
PATIENT REPOSITIONED TO L SIDE. R HEEL ULCER NOTED, DRESSED WITH FOAM DRESSING AND PAPERT TAPE D/T LEAKING. PATIENT C/O OF PAIN OF A 3, WILL MEDICATE WHEN MEDS PROFILED BY PHARMACY. LUNGS CLEAR TO ASCULTATION. BREATHING EVEN AND UNLABORED ON ROOM AIR. PATIENT NOTED TO HAVE STAGE 2 WOUND ON COCCYX AREA (SEE PICTURES IN CHART). DENIES ADDITIONAL CONCERNS AT THIS TIME. SAFETY MEASURES IN PLACE INCLUDING BED LOCKED AND IN LOW POSITION, CALL LIGHT RESTING NEXT TO L HAND (PATIENT NOTED TO FAVOR L HAND). NO ADDITIONAL CONCERNS AT THIS TIME. WILL CONTINUE WITH PLAN OF CARE.
[2024-07-05] MEDS ORDERED: SODIUM CHLORIDE 0.9% 1,000 ML IV PRN (20:15)
[2024-07-05] MEDS ORDERED: MAGNESIUM HYDROXIDE 30 ML UDC PO PRN (20:15)
[2024-07-05] MEDS ORDERED: ACETAMINOPHEN 325 MG/TAB PO PRN (20:15)
[2024-07-05] MEDS ORDERED: ENOXAPARIN SODIUM 40 MG/0.4 ML SYR SC SCH (21:00)
[2024-07-05] MEDS ORDERED: MIRTAZAPINE 15 MG/TAB PO SCH (21:00)
[2024-07-05] MEDS ORDERED: APIXABAN BASE 5 MG TAB PO SCH (21:00)
[2024-07-05] MEDS ORDERED: METOPROLOL TARTRATE 50 MG/TAB PO SCH (21:00)
[2024-07-05] MEDS ORDERED: DEXTROSE 250 ML IV PRN (21:55)
[2024-07-06] VITALS (10 sets, daily range): BP systolic 160–199; BP diastolic 71–98
--- NOTE | 2024-07-06 00:07 | NUR ---
PATIENT REPOSITIONED SUPINE. DENIES CONCERNS AT THIS TIME. NO APPARENT DISTRESS NOTED. WILL CONTINUE WITH PLAN OF CARE.
[2024-07-06] MEDS ORDERED: CLARIFY DOSE PO PRN (01:50)
[2024-07-06] MEDS ORDERED: hydrALAZINE HCL 20 MG/ML VIAL(1 ML) IV PRN (01:50)
--- NOTE | 2024-07-06 03:28 | NUR ---
PATIENT REPOSITIONED. BP ELEVATED, MEDICATED ACCORDING TO EMAR. DENIES ADDITIONAL CONCERNS AT THIS TIME. NO APPARENT DISTRESS. WILL CONTINUE WITH PLAN OF CARE.
[2024-07-06] MEDS ORDERED: INSULIN LISPRO 100 UNITS/ML ML SC SCH (07:00)
--- NOTE | 2024-07-06 07:56 | NUR ---
PATIENT IN BED RESTING NO C/O PAIN . A&O X4 . SKIN ON BUTTUCKS INTACT / FATTY TISSUE ON LEFT LOWER ARM ROUND BALL. HEEL RT WITH PADDING
[2024-07-06] MEDS ORDERED: AMIODARONE 200 MG/TAB PO SCH (09:00)
[2024-07-06 09:30] LABS: URINE BILIRUBIN - DIPSTICK Negative (NEGATIVE); URINE BLOOD DIPSTICK Negative (NEGATIVE); URINE GLUCOSE - DIPSTICK Negative (NEGATIVE); URINE KETONE Negative (NEGATIVE); URINE LEUK ESTERASE Trace (NEGATIVE); URINE NITRITE - DIPSTICK Negative (Negative); URINE PROTEIN - DIPSTICK Negative (NEG-TRACE); URINE SPECIFIC GRAVITY 1.015
[2024-07-06] MEDS ORDERED: LISINOPRIL 20 MG/TAB PO SCH (09:30)
[2024-07-06 09:31] LABS: URINE COLOR Yellow
[2024-07-06] MEDS ORDERED: cloNIDine HCL 0.1 MG/TAB PO SCH (10:00)
--- NOTE | 2024-07-06 10:40 | NUR ---
nurse notified about bp. was taken 3 times bp last time 180/86
--- NOTE | 2024-07-06 12:00 | NUR ---
PATIENT RESTING IN BED WITH FAMILY AT BEDSIDE . PATIENTS HEELS HAVE BEEN REWRAPED .ALSO BUTTUCKS TX APPLIED
--- NOTE | 2024-07-06 16:00 | NUR ---
PATIENT IS RESTING IN BED EAT MOST OF HER MEAL. STILL ON IV TX. BP HAS BEEN MANAGED WITH MEDS AND PRN MED
--- NOTE | 2024-07-06 19:00 | NUR ---
PATIENT OBSERVED SITTING UP IN BED. ALERT AND ABLE TO MAKE NEEDS KNOWN. ASSESSMENT COMPLETE. NO DISTRESS NOTED. NO COMPLAINTS OF PAIN. DENIES NEEDING ANYTHING AT THIS TIME. BED REMAINS IN LOW POSITION. CALL ATWOOD AND BELONGINGS IN REACH.
--- NOTE | 2024-07-06 22:47 | NUR ---
Nurse notified about patient blood pressure being high.
--- NOTE | 2024-07-06 23:06 | NUR ---
PATIENT OBSERVED WITH IV OUT. CATHETER INTACT. PATIENT VOICED SHE DID IT ON ACCIDENT. NEW IV SITE PLACED WITHOUT DIFFICULTY. PRN HYDRALAZINE GIVEN PER ORDERS. PATIENT TOLERATED WELL. DENIES NEEDING ANYTHING ELSE AT THIS TIME. BED IN LOW POSITION. CALL ATWOOD IN REACH.
[2024-07-07] VITALS (9 sets, daily range): BP systolic 153–209; BP diastolic 70–99
--- NOTE | 2024-07-07 04:10 | NUR ---
PATIENT REMAINS RESTING IN BED. DENIES NEEDING ANYTHING AT THIS TIME. NO DISTRESS NOTED. NO COMPLAINTS OF PAIN. BED REMAINS IN LOW POSITION. CALL ATWOOD IN REACH.
--- NOTE | 2024-07-07 04:29 | NUR ---
Nurse notified about patient blood sugar being high 192/99.
[2024-07-07 05:24] LABS: MEAN CORPUSCULAR HGB 29.2 pG CALC (26.0-32.0); MEAN CORPUSCULAR HGB CONC 32.3 g/dL CAL (32.0-36.0); RED BLOOD COUNT 3.43 mill/uL (4.20-5.60); RED CELL DISTRI WIDTH 14.4 % (11.5-15.5)
[2024-07-07 05:28] LABS: ALBUMIN 3.2 g/dL (3.2-5.0); BILIRUBIN, TOTAL 0.7 mg/dL (0.02-1.3); CREATININE 1.1 mg/dL (0.5-1.0); MAGNESIUM 1.8 mg/dL (1.6-2.3); TOTAL PROTEIN 6.8 g/dL (6.3-8.2)
[2024-07-07 05:29] LABS: MEAN CELL VOLUME 90.4 fL CALC (80.0-100.0)
[2024-07-07 05:35] LABS: POTASSIUM 3.5 mmol/l (3.5-5.1)
[2024-07-07] MEDS ORDERED: PANTOPRAZOLE SODIUM Sesquihydr 40 MG/TAB PO SCH (07:00)
--- NOTE | 2024-07-07 08:13 | NUR ---
PATIENT RESTING IN BED. NO C/O PAIN HEELS WRAPED . IV SITE INTACT / BREATHING UNLABOR . CALL LIGHT WITH IN REACH.
--- NOTE | 2024-07-07 12:00 | NUR ---
PATIENT LAYING IN BED RESTING EATING LUNCH . IV NS RUNNING ORDERED . IV SITE INTACT . HAS C/O PAIN OR DISCOMFORT ON HEELS AT THIS TIME
--- NOTE | 2024-07-07 16:00 | NUR ---
PATIENT IS RESTING IN BED / SPENT TIME WITH DAUGHTER HAD A BED BATH . HAS NO C/O PAIN OR DISCOMFORT AT THIS TIME
--- NOTE | 2024-07-07 19:49 | NUR ---
APTIENT RESTING IN SEMI SNEED'S POSITION. ALERT AND ORIENTED X2. DENIES ANY PAIN AT THIS TIME, RESPS ARE EVEN AND UNLABORED, LUNGS ARE CLEAR TO AUCULTATION, ABDOMEN IS DISTENDED BUT SOFT WITH ACTIVE BOWEL SOUNDS. WEAK PEDAL PULSES TO TOUCH. PAD-DRESSING TO BOTH HEELS INTACT WITHOUT ANY DRAINAGE NOTED AT THIS MOMENT, HEELS PROTECTOR IN PLACE ORDERED. PUREWICK- WITH NO URINE. 24 G IV TO RIGHT HAND APPEARS HEALTHY AND CLEAN. IVF VS PATENT AND INFUSING AT 10 MLS/HR. FEET ELEVATED IN 2 PILLOWS. NO EDEMA NOTED, SKIN IS DRY AND WARM. CALL LIT IS IN REACH AND SAFETY PRECAUTIONS IN PLACE/
--- NOTE | 2024-07-07 23:45 | NUR ---
PATIENT SITTING UP IN BED-AWAKE AND ALERT. BP IS ELEVATED 184/87 AND MEDICATED PATIENT WITH APRESOLINE 10MG IVP VIA RIGHT HAND IV SITE ORDERED. IVF NS PATENT AND INFUSING AT KVO RATE. TELE MONITOR IN PLACE AND READING IN UPPER 50'S AT THIS TIME. SAFETY PRECAUTIONS REINFORCE. CALL LIGHT IN REACH. WILL CONT TO MONITOR
[2024-07-08] VITALS (9 sets, daily range): BP systolic 143–192; BP diastolic 58–118
--- NOTE | 2024-07-08 | NUR ---
PT RESTING IN SEMI SNEED'S POSITION WITH EYES CLOSED. BREATHING IS EVEN AND UNLABORED. TELE MONITOR IN PLACE RUNNING [id number]. IVF NS INFUSING ORDERED. HEELS REMAIN ELEVATED. CALL LIGHT IS IN REACH AND SAFETY PRECAUTIONS IN PLACE.
--- NOTE | 2024-07-08 04:00 | NUR ---
PT RESTING IN HIGH SNEED'S POSITION AND EYES CLOSED. BREATHING IS EVEN AND UNLABORED. TELE MONITOR IN PLACE WITH SR-64. CALL LIGHT IS IN REACH AND SAFETY PRECAUTIONS IN PLACE.
--- NOTE | 2024-07-08 07:30 | NUR ---
PATIENT LAYING IN BED WITH EYES CLOSED BUT EASILY AROUSED. NO SIGN OR SYMPTOMS NOTED AT THIS TIME. PATIENT ACCU CHECK COMPLETED.
[2024-07-08 08:57] LABS: BASO% 0.1 % (0-3); EOS% 1.6 % (0-8); IMMATURE GRANULOCYTES 1.7 % (0.0-5.0); LYMPH% 29.5 % (15-41); MEAN CELL VOLUME 95.1 fL CALC (80.0-100.0); MEAN CORPUSCULAR HGB CONC 30.5 g/dL CAL (32.0-36.0); MONO% 6.8 % (2-13); NEUT# 7.8 thou/uL (2.00-7.15); NEUT% 60.3 % (42-76); RED BLOOD COUNT 4.27 mill/uL (4.20-5.60); RED CELL DISTRI WIDTH 14.8 % (11.5-15.5)
[2024-07-08 08:58] LABS: HEMATOCRIT 40.6 % (37.0-47.0); HEMOGLOBIN 12.4 g/dl (12.0-16.0)
[2024-07-08] MEDS ORDERED: amLODIPine BESYLATE 5 MG/TAB PO SCH (09:00)
[2024-07-08 09:18] LABS: ALBUMIN 3.7 g/dL (3.2-5.0); CREATININE 0.9 mg/dL (0.5-1.0); MAGNESIUM 2.2 mg/dL (1.6-2.3)
[2024-07-08 09:50] LABS: BILIRUBIN, TOTAL 1.2 mg/dL (0.02-1.3); POTASSIUM 4.3 mmol/l (3.5-5.1); TOTAL PROTEIN 8.2 g/dL (6.3-8.2)
--- NOTE | 2024-07-08 12:14 | NUR ---
PATIENT LAYING IN BED, HAVING LUNCH. VISITORS AT BEDSIDE. PATIENT DENIES ANY NEEDS AT THIS TIME.
--- NOTE | 2024-07-08 15:56 | NUR ---
PATIENT SITTING UP IN BED, TALKING ON PHONE. PATIENT DENIES ANY NEEDS AT THIS TIME.
--- NOTE | 2024-07-08 20:00 | NUR ---
PT RESTING IN HIGH SNEED'S POSITION AT THIS TIME. ALERT AND ORIENTED X3. REPORTS MILD PAIN TO RIGHT FOOT. BREATHING ES EVEN AND UNLABORED. NO DISTRESS NOTED AT THIS SIDE. 24 G IV TO RIGHHT HAND FLSUHES AND WORKS WELL. IVF NS INFUSING VIA RIGH HAND AT 10 MLS/HR. FACE IS MILD RED AT THIS TIME- PT WAS ASKED IF SHE IS ALLERGIC TO SOMETHING BUT SHE DENIED IT. SKIN IS DRY AND COOL. LOWER EXTREMITIES ELEVATED ON 2 PILLOWS. HEELS PROTECTORS IN PLACE ORDERED. PUREWICK IN PLACE-NO URINE AT THIS TIME. CALL LIGHT IS IN REACH AND SAFETY PRECAUTIONS IN PLACE. PT DENIES ANY ADDITIONAL NEEDS. WILL CONTINUE TO MONITOR.
--- NOTE | 2024-07-08 21:35 | NUR ---
PT LAYING IN BED. DRESSING TO BOTH HEELS CHANGED. ULCER TO RIGHT FOOT CLEANED WITH NORMAL SALINE AND CLEAN AQUACEL APPLIED. SCAR TO LEFT HEEL CLEANED WELL AND AQUACEL PLACED. HEELS PROTECTORS IN PLACED ORDERED. PT REMANS WITH FEET ELEVATED. TELE MONITOR IN PLACE ORDERED. DENIES ANY NEEDS. CALL LIGHT IS IN REACH AND SAFETY PRECAUTIONS IN PLACE.
[2024-07-09] VITALS (8 sets, daily range): BP systolic 132–186; BP diastolic 49–85
--- NOTE | 2024-07-09 | NUR ---
PT RESTING IN HIGH SNEED'S POSITION AT THIS TIME WITH EYES OPEN. RESPS ARE EVEN AND UNLABORED. DENIES ANY NEEDS AT THIS MOMENT. HEELS RENAINS ELEVATED AND SCD'S ARE IN PLACE. CALL LIGHT IS IN REACH AND SAFETY PRECAUTIONS IN PLACE.
--- NOTE | 2024-07-09 04:00 | NUR ---
PT RESTING IN SUPINE POSITION AT THIS MOMENT WITH EYES CLOSED. RESPS ARE EVEN AND UNLABORED. IVF NS INFUSING ORDERED VIA RIGHT HAND. TELE MONITOR WITH LEADS INTACT RUNNINGN SR-63. CALL LIGHT IS WIHITN REACH AND SAFETY PRECAUTIONS IN PLACE.
[2024-07-09 04:58] LABS: BASO% 0.2 % (0-3); EOS% 1.1 % (0-8); IMMATURE GRANULOCYTES 1.3 % (0.0-5.0); LYMPH% 20.7 % (15-41); MEAN CELL VOLUME 91.4 fL CALC (80.0-100.0); MEAN CORPUSCULAR HGB 29.1 pG CALC (26.0-32.0); MEAN CORPUSCULAR HGB CONC 31.8 g/dL CAL (32.0-36.0); MONO% 8.5 % (2-13); NEUT# 7.82 thou/uL (2.00-7.15); NEUT% 68.2 % (42-76); RED BLOOD COUNT 3.37 mill/uL (4.20-5.60); RED CELL DISTRI WIDTH 14.4 % (11.5-15.5)
[2024-07-09 04:59] LABS: MAGNESIUM 1.9 mg/dL (1.6-2.3); POTASSIUM 3.6 mmol/l (3.5-5.1)
[2024-07-09 05:09] LABS: HEMATOCRIT 30.8 % (37.0-47.0); HEMOGLOBIN 9.8 g/dl (12.0-16.0)
[2024-07-09 05:16] LABS: ALBUMIN 2.8 g/dL (3.2-5.0); BILIRUBIN, TOTAL 0.6 mg/dL (0.02-1.3); TOTAL PROTEIN 6.2 g/dL (6.3-8.2)
--- NOTE | 2024-07-09 08:44 | NUR ---
patinet a/o x2; room air; breathing unlabored and even; denied any pain; dneied any n/d/v at this time; iv site clean and intact running with NS @10; poc was talked about; patinet family in room with patinet wanting to speak with provider;writter notfied provider; writter redressed and cleanned bilateral feets and elevated bilateral feet; poc was talked about; call light wthin reach; verbalized understanding on how to use, personal items within reach; bed in lowest cuong;safetey measures in placed
[2024-07-09] MEDS ORDERED: LISINOPRIL 20 MG/TAB PO SCH ×2 (09:00)
[2024-07-09] MEDS ORDERED: hydroCHLOROthiazide 12.5 MG/CAP PO SCH (09:00)
[2024-07-09] MEDS ORDERED: amLODIPine BESYLATE 5 MG/TAB PO SCH (09:00)
--- NOTE | 2024-07-09 12:11 | NUR ---
patient is getting a bed bath at this time, new photos of buttocks taken; isaias cream applied to patient, no complaints
[2024-07-09] MEDS ORDERED: ELIQUIS5 MG PO (13:11)
[2024-07-09] MEDS ORDERED: NIFEDIPINE60 MG PO (13:12)
[2024-07-09] MEDS ORDERED: HYDROCHLOROTH12.5 MG PO (13:16)
--- NOTE | 2024-07-09 14:06 | NUR ---
GAVE REPORT TO JASON AT [facility] WITH REPORT, IV SITE REMMOVED
--- NOTE | 2024-07-09 14:29 | NUR ---
IV site discontinued, cath intact. No edema , no redness, voices no discomfort. Discharge instructions given. Patient verbalizes understanding of same. Discharged in stable condition via Wheelchair to [facility] with STAFF. All belongings sent with pt. FAMILY CALLED AND NOTIFIED
== END 2024-07-09 14:24 ==
LOC: ED 11:45 → ED-I 15:00 → ED 15:08 → MS2 15:09
PROVIDERS: Nurse Practitioner; Nurse Practitioner Family; ADMIT Internal Medicine; ATTEND Internal Medicine
DX: R53.81 Other malaise (principal); L89.613 Pressure ulcer of right heel, stage 3; L89.620 Pressure ulcer of left heel, unstageable; N17.9 Acute kidney failure, unspecified; I12.9 Hypertensive chronic kidney disease with stage 1 through stage 4 chronic kidney disease, or unspecified chronic kidney disease; E11.22 Type 2 diabetes mellitus with diabetic chronic kidney disease; N18.9 Chronic kidney disease, unspecified; I48.91 Unspecified atrial fibrillation; F03.90 Unspecified dementia, unspecified severity, without behavioral disturbance, psychotic disturbance, mood disturbance, and anxiety; I69.954 Hemiplegia and hemiparesis following unspecified cerebrovascular disease affecting left non-dominant side; S30.91XA Unspecified superficial injury of lower back and pelvis, initial encounter; X58.XXXA Exposure to other specified factors, initial encounter; Z79.84 Long term (current) use of oral hypoglycemic drugs; Z91.81 History of falling
CPT/HCPCS: J0360; J1815; J2405

== ENCOUNTER 2024-07-17 14:37 | Emergency (ER) | payer MEDICARE ==
[~2024-07-17] VITALS: Ht 165.1 cm; Wt 61.0 kg
[~2024-07-17 14:37] MED LIST changes: +ACTOS30 MG PO; +HYDROCHLOROTH12.5 MG PO; +NIFEDIPINE60 MG PO
[2024-07-17] MEDS ORDERED: ACETAMINOPHEN 325 MG/TAB PO ONE (16:10)
[2024-07-17 16:16] VITALS: BP 158/82
== END 2024-07-17 16:36 | disposition home or self-care (01) ==
LOC: ED 14:37
DX: S00.03XA Contusion of scalp, initial encounter (principal); E11.22 Type 2 diabetes mellitus with diabetic chronic kidney disease; I12.9 Hypertensive chronic kidney disease with stage 1 through stage 4 chronic kidney disease, or unspecified chronic kidney disease; N18.9 Chronic kidney disease, unspecified; I48.91 Unspecified atrial fibrillation; F03.90 Unspecified dementia, unspecified severity, without behavioral disturbance, psychotic disturbance, mood disturbance, and anxiety; W05.0XXA Fall from non-moving wheelchair, initial encounter; Y92.129 Unspecified place in nursing home as the place of occurrence of the external cause; Z79.84 Long term (current) use of oral hypoglycemic drugs